=== PATIENT | male | born 2005 | race Caucasian/White ===

== ENCOUNTER 2024-03-16 12:03 | Inpatient (IN) | payer BC, SELFPAY ==
[2024-03-16] VITALS (9 sets, daily range): BP systolic 101–130; BP diastolic 51–80; PULSE 72–103; RESP 15–20; TEMP 36.7–38; O2SAT 86–100; BMI 19.9; BMI 21.5
--- NOTE | ~2024-03-16 | CT_ITS ---
EXAMINATION: CT CERVICAL SPINE WITHOUT CONTRAST CLINICAL INFORMATION: History injury, pain, right lower quadrant abdominal pain and syncope. COMPARISON: None available. TECHNIQUE: Spiral CT examination of the cervical spine was performed in axial plane and without IV contrast. Sagittal, coronal, and thin section axial reformatted images were constructed from the axial data set. This CT examination was performed using dose optimization techniques as appropriate, variously including the following: *Automated exposure control *Adjustment of mA and/or kV according to patient size (this includes techniques or standardized protocols for targeted exams where dose is matched to indication/reason for exam; i.e. extremities or head) *Use of iterative reconstruction technique DLP: 601 mGy-cm FINDINGS: Straightening of the normal lordosis. This is nonspecific. There is a trace right convex scoliosis which could be positional. There is no evidence of fracture or traumatic subluxation. There are no suspicious bone lesions or compression deformities. Facets are normally aligned. There are no subluxations. Disc spaces appear normal. No significant generative changes. No evidence of canal stenosis or large disc herniation. Atlantoaxial joint and craniocervical junction are intact and aligned. Normal thyroid. Lung apices are clear. CT/CT cervical spine wo IV con IMPRESSION: Unremarkable examination. No CT evidence of acute cervical spine fracture or injury. Electronically signed by: Samuel Mead MD 03/16/2024 02:27 PM [facility]
--- NOTE | ~2024-03-16 | CT_ITS ---
EXAMINATION: CT HEAD WITHOUT CONTRAST CLINICAL INFORMATION: Head strike and loss of consciousness COMPARISON: None available. TECHNIQUE: Contiguous axial imaging was performed from the skull base to vertex without intravenous administration of contrast. This CT examination was performed using dose optimization techniques as appropriate, variously including the following: *Automated exposure control *Adjustment of mA and/or kV according to patient size (this includes techniques or standardized protocols for targeted exams where dose is matched to indication/reason for exam; i.e. extremities or head) *Use of iterative reconstruction technique DLP: 650 mGy-cm FINDINGS: No intra or extra-axial fluid collection or hemorrhage, mass or mass effect. Calvarium is intact. CT/CT head/brain wo IV con IMPRESSION: No acute intracranial pathology. Electronically signed by: Cameron Odom MD 03/16/2024 12:39 PM [facility]
--- NOTE | ~2024-03-16 | CT_ITS ---
EXAMINATION: CT ABDOMEN AND PELVIS WITH CONTRAST CLINICAL INFORMATION: COMPARISON: None available. TECHNIQUE: Multidetector volumetric images were obtained from the superior aspect of the liver through the pubic symphysis following administration 85 mL of Omnipaque 350 intravenous contrast. Sagittal and coronal reformatted images were obtained on the technologist's workstation. Oral contrast: No This CT examination was performed using dose optimization techniques as appropriate, variously including the following: *Automated exposure control *Adjustment of mA and/or kV according to patient size (this includes techniques or standardized protocols for targeted exams where dose is matched to indication/reason for exam; i.e. extremities or head) *Use of iterative reconstruction technique DLP: mGy-cm FINDINGS: LUNG BASES: The visualized lung bases are unremarkable. LIVER, GALLBLADDER, AND BILIARY TREE: The liver is normal in size, shape, and attenuation. No focal hepatic lesion or biliary ductal dilatation is present. The gallbladder is unremarkable with no evidence of radiopaque gallstones, gallbladder wall thickening, or obvious pericholecystic inflammatory changes. PANCREAS: Unremarkable. SPLEEN: Unremarkable. ADRENAL GLANDS: Unremarkable. KIDNEYS AND URETERS: The kidneys are normal in size, shape, and attenuation. No hydronephrosis, hydroureter, or calculi seen. No perinephric stranding. BLADDER: Unremarkable. GASTROINTESTINAL TRACT: - The appendix appears engorged, measuring up to 9 mm in diameter, with mucosal enhancement, a proximal appendicolith, and periappendiceal inflammatory changes findings consistent with acute appendicitis. There is no evidence of abscess or complication. -The remainder of the GI tract is normal. PERITONEUM: -Trace ascites in the pelvis, presumably reactive. -No free air. ABDOMINAL WALL: No significant hernia is appreciated. LYMPH NODES: -No pathologic lymphadenopathy. -There is an increased number of lymph nodes in the central and right lower quadrant small bowel mesentery. VASCULAR: Unremarkable. PELVIC VISCERA: Unremarkable. OSSEOUS STRUCTURES: Unremarkable. CT/CT abdomen pelvis w IV con IMPRESSION: 1. Findings consistent with early acute appendicitis. No complications. 2. Mild lymphadenopathy in the central and right lower quadrant mesentery, likely reactive given the appendiceal process. Electronically signed by: Samuel Mead MD 03/16/2024 02:42 PM [facility] [place]
--- NOTE | 2024-03-16 12:06 | ED_ITS ---
HPI - Syncope General Chief Complaint: General Medical Stated Complaint: Eye lac, syncopal episode earlier Time Seen by Provider: 03/16/24 12:25 Source: patient and family (patient's father) Mode of arrival: ambulatory Limitations: no limitations History of Present Illness ED Provider: Lissett Rivera PA-C HPI narrative: Patient is a 18 year old assigned male at with a history of IBS and mono presenting to the emergency department today with right lower quadrant pain and a left sided facial laceration after a syncopal episode. Patient states that he woke up from sleep, stood up, and immediately went to the bathroom to urinate. Patient states that he started getting lightheaded, sat on the toilet so he didn't pass out, and then he fainted and hit his face. Patient states that last night he began having abdominal pain and today, it is worsening on the right lower side. Patient denies any dizziness, lightheadedness, nausea, vomiting, fever, chills, blurry vision, double vision, loss of vision, chest pain, difficulty breathing, shortness of breath, back pain, night sweats, pain with urination, increased urinary frequency, increased urinary urgency, blood in his urine or stool, bowel incontinence, bladder incontinence, or any other complaints at this time. Related Data Home Medications ?Medication ?Instructions ?Recorded ?Confirmed acetaminophen 500 mg tablet 500 mg PO QID PRN Pain 03/16/24 03/16/24 Allergies Allergy/AdvReac Type Severity Reaction Status Date / Time No Known Allergies Allergy Verified 03/16/24 12:09 Review of Systems 2 Constitutional: Constitutional: Reports no additional constitutional complaints, Denies chills, Denies fever(s) and Denies night sweats Eyes: Eyes: Reports no additional eye complaints, Denies blurry vision, Denies change in vision, Denies diplopia, Denies eye discharge, Denies loss of vision and Denies eye pain ENT: Denies dizziness Comments: left sided forehead laceration Cardiovascular: Cardiovascular: Reports no additional cardiovascular complaints, Denies chest pain, Denies lightheadedness, Denies Loss of Consciousness and Denies dyspnea Respiratory: Respiratory: Reports no additional respiratory complaints and Denies dyspnea Gastrointestinal: Gastrointestinal: Reports no additional gastrointestinal complaints, Denies abdominal pain, Denies melena, Denies hematochezia, Denies change in bowel habits and Denies change in stool character Genitourinary: Genitourinary: Reports no additional male genitourinary complaints, Denies hematuria, Denies oliguria, Denies difficulty urinating, Denies dysuria, Denies urinary frequency, Denies urinary hesitancy, Denies urinary incontinence and Denies urinary urgency Musculoskeletal: Musculoskeletal: Reports no additional musculoskeletal complaints, Denies numbness and Denies tingling Neurologic: Denies dizziness, Denies loss of vision, Denies numbness and Denies tingling Psychiatric: Psychiatric: Reports no additional psychiatric complaints Endocrine: Endocrine: Reports no additional endocrine complaints Hematologic/Lymphatic: Hematologic/Lymphatic: Reports no additional hematologic/lymphatic complaints Allergic/Immunologic: Allergic/Immunologic: Reports no additional allergic/immunologic complaints PMFSH Past Medical History Attestation statement: The following information was validated with the patient. (all information validated with the patient's father) Source: old records reviewed, obtained from family (patient's father provided additional history and confirmed the history provided by the patient.) and nursing notes reviewed Medical History Acute appendicitis Social History Social History Smoked in Last 30 Days: No Use of substances other than those prescribed or required for medical reasons: No Advance Directives: No Physical Exam 2 Vital Signs: Vital Signs: Last Vital Signs Temp 98.6 F 03/16/24 12:04 Pulse 93 03/16/24 12:04 Resp 18 03/16/24 12:04 BP 120/80 03/16/24 12:04 Pulse Ox 100 03/16/24 12:04 O2 Del Method Room Air 03/16/24 12:04 BMI result Body Mass Index 19.9 Const: General: cooperative, no acute distress, alert and awake Nutritional Appearance: well nourished Orientation/consciousness: patient oriented x3 Limitations: no limitations HEENT: Head: Yes normal to inspection Ears: hearing grossly normal bilaterally and external ears normal General nose exam: Normal external nose present, no nasal discharge noted and no epistaxis Face and sinus: No abrasion Face images: 1. 3.5cm laceration - no active bleeding Mouth: Normal oral and palatal mucosa present, no drooling and no muffled voice Eyes: General: appearance normal, both eyes and all related structures P eriorbital: periorbital findings normal Eyelids: Yes eyelids normal C onjunctivae: conjunctivae normal Pupils: Equal, round and reactive pupils present EOM: EOMs intact bilaterally Neck: Neck: Yes normal visual inspection, Yes full ROM and Yes no lymphadenopathy Chest: Chest palpation & inspection: normal inspection of the chest Resp: Effort & Inspection: normal respiratory effort and able to speak in complete sentences GI: Inspection: Yes normal to inspection Palpation (GI): Soft to palpation, not firm, Tenderness to palpation present (GI) in the RLQ, no guarding and not rigid Neuro: General: patient oriented x3 and moves all extremities Cranial nerves: Yes Equal, round and reactive pupils present Cognition (Neuro): n ormal cognition Extrem: General: Yes normal to inspection, Yes full ROM and Yes capillary refill normal Psych: Appearance: grossly normal Mental Status: mental status grossly normal Affect: normal affect Attitude: cooperative Thought process: N ormal thought process present Thought content: Normal thought content present Insight: Good insight present (Psych) Course Course Course Narrative: This is an RME: Additional HPI, ROS, PE not included below will be deferred to primary provider. RME assessment and note performed by: Eduarda Barrett PA-C This is a [id number], with no known medical problems, who presents to the ER with complaints of syncope. Pt states that while he was urinating and felt dizzy, sat down on the toilet and then fell down, and woke up on the floor. He lacerated his left eyebrow. Reports yesterday he had alot of abdominal pain, umbilical, now radiating to his RLQ. Reports that he has had syncopal episodes in the past when he is sick. Recently had mono 1 month ago. TTP in the RLQ. Plan: Labs, EKG Medications Administered Discontinued Medications Generic Name Dose Route Start Last Admin Trade Name Freq PRN Reason Stop Dose Admin Sodium Chloride 1,000 mls @ 999 mls/hr 03/16/24 12:45 03/16/24 14:05 Ns IV 03/16/24 13:45 Infused .Q1H1M NADJA Infusion Iohexol 85 ml 03/16/24 13:42 03/16/24 13:43 Iohexol 350 Mg/Ml 75 Ml Infus..Btl IV 03/16/24 13:43 85 ml ONCE ONE Administration Lidocaine HCl 5 ml 03/16/24 12:12 03/16/24 15:34 Lidocaine Hcl 1 % Mpf 5 Ml Vial SUBCUT 03/16/24 12:13 5 ml ONCE ONE Administration Medical Decision Making Medical Decision Making [facility] Narrative: Patient is a 18 year old assigned male at with a history of IBS and mono presenting to the emergency department today with right lower quadrant pain and a left sided facial laceration after a syncopal episode. Patient's physical exam was as noted in the physical exam portion of this note. Patient's blood work was unremarkable. Patient's EKG was unremarkable. Patient's head and c-spine CTs showed no acute process. Patient's CT of the abdomen/pelvis showed an early acute appendicitis. Patient was positive for mono however, that is positive given his recent known mono illness. I spoke to the general surgery team fire information officer who recommended admission to their service for planned OR this afternoon. Patient's clinical presentation is most consistent with an episode of syncope after orthostatic hypotension and appendicitis. Patient was given IV fluids while in the department. I explained my physical exam findings as well as all test results to the patient and the patient's father. I answered all questions asked by the patient and the patient's father. I repaired the patient's facial laceration, per procedure note, without incident. Patient and the patient's father verbalized agreement and understanding with this treatment plan and admission for appendectomy. Differential Diagnosis Differential Diagnoses: The differential diagnosis associated with the presentation includes Syncopal episode Vasovagal syncope Laceration Appendicitis Orthostatic hypotension Admission/Observation Consideration of admission/observation: Escalation of care including admission/observation considered Patient admitted as noted in the MDM Rationale portion of this note. Consult Healthcare Provider Management of the patient was discussed with: Director Of Marketing Operations (spoke to the general surgery team as noted in the MDM Rationale portion of this note.) Lab Data [facility] Lab Attestation statement: I reviewed the patient's lab results. My interpretation of these results are in the MDM Rationale portion of this note. 03/16/24 12:59 03/16/24 12:59 Labs: Lab Results 03/16/24 03/16/24 03/16/24 Range/Units 12:58 12:59 13:00 WBC 7.9 (4.8-10.8) X10*3/uL RBC 4.62 (4.60-5.80) X10*6/uL Hgb 14.5 (14.0-18.0) g/dl Hct 39.2 L (42.0-52.0) % MCV 84.8 (80.0-98.0) fL MCH 31.4 (27.0-33.0) pg MCHC 37.0 H (31.0-36.0) g/dl RDW 12.1 (11.0-16.0) % Plt Count 151 L (160-400) X10*3/uL MPV 9.2 L (9.4-12.4) fL Immature Gran % (Auto) 0.4 (0.0-0.4) % Neut % (Auto) 71.9 (45-73) % Lymph % (Auto) 17.7 L (20-40) % [place] % (Auto) 9.4 (2-11) % Eos % (Auto) 0.1 (0-4) % Baso % (Auto) 0.5 (0-2) % Lymph # (Auto) 1.4 (1.2-4.9) X10*3/uL [place] # (Auto) 0.7 (0.1-1.2) X10*3/uL Eos # (Auto) 0.0 (0.0-0.4) X10*3/uL Baso # (Auto) 0.0 (0.0-0.2) X10*3/uL Abs Immat Gran (auto) 0.03 (0.00-0.03) X10*3/uL Absolute Neuts (auto) 5.6 (2.0-8.3) x10*3/uL Absolute Nucleated RBC 0.000 (0.0-0.012) X10*3/uL Nucleated RBC % (auto) 0.0 (0.0-0.2) /100WBC PT 13.4 H (10.9-12.4) SEC INR 1.2 H (0.9-1.1) Sodium 139 (135-145) mmol/L Potassium 3.9 (3.3-5.1) mmol/L Chloride 104 (96-108) mmol/L Carbon Dioxide 29 (22-29) mmol/L Anion Gap 10 L (12-20) BUN 15 (9-16) mg/dL Creatinine 1.10 (0.5-1.4) mg/dL Estim Creat Clear Calc 101.7 Estimated GFR > 60 Random Glucose 89 (60-115) mg/dL Calcium 9.5 (8.4-10.2) mg/dL Magnesium 1.9 (1.6-2.6) mg/dL Total Bilirubin 0.8 (0.0-1.0) mg/dL Direct Bilirubin 0.4 (0.0-0.5) mg/dL AST 20 (5-37) U/L ALT 41 H (0-40) U/L Alkaline Phosphatase 77 (39-117) U/L Troponin I High Sens < 2.7 (<3.5-35.0) ng/L Total Protein 7.4 (6.5-8.0) g/dL Albumin 4.4 (3.5-5.0) g/dL Lipase 23 (8-78) U/L Urine Color Urine Appearance Urine pH (5.0-9.0) Ur Specific [place] (1.005-1.025) Urine Protein (Neg-Trace) mg/dL Urine Glucose (UA) (Negative) mg/dL Urine Ketones (Negative) mg/dL Urine Blood (Negative) Urine Nitrite (Negative) Ur Leukocyte Esterase (Negative) Monoscreen Positive A (Negative) Influenza Type A (PCR) NEGATIVE (Negative) Influenza Type B (PCR) NEGATIVE (Negative) RSV RNA Qual (PCR) NEGATIVE (Negative) SARS-CoV-2 RNA (RT-PCR) NEGATIVE (Negative) S. pyogenes GrpA LVI Negative (Negative) 03/16/24 Range/Units 13:55 WBC (4.8-10.8) X10*3/uL RBC (4.60-5.80) X10*6/uL Hgb (14.0-18.0) g/dl Hct (42.0-52.0) % MCV (80.0-98.0) fL MCH (27.0-33.0) pg MCHC (31.0-36.0) g/dl RDW (11.0-16.0) % Plt Count (160-400) X10*3/uL MPV (9.4-12.4) fL Immature Gran % (Auto) (0.0-0.4) % Neut % (Auto) (45-73) % Lymph % (Auto) (20-40) % [place] % (Auto) (2-11) % Eos % (Auto) (0-4) % Baso % (Auto) (0-2) % Lymph # (Auto) (1.2-4.9) X10*3/uL [place] # (Auto) (0.1-1.2) X10*3/uL Eos # (Auto) (0.0-0.4) X10*3/uL Baso # (Auto) (0.0-0.2) X10*3/uL Abs Immat Gran (auto) (0.00-0.03) X10*3/uL Absolute Neuts (auto) (2.0-8.3) x10*3/uL Absolute Nucleated RBC (0.0-0.012) X10*3/uL Nucleated RBC % (auto) (0.0-0.2) /100WBC PT (10.9-12.4) SEC INR (0.9-1.1) Sodium (135-145) mmol/L Potassium (3.3-5.1) mmol/L Chloride (96-108) mmol/L Carbon Dioxide (22-29) mmol/L Anion Gap (12-20) BUN (9-16) mg/dL Creatinine (0.5-1.4) mg/dL Estim Creat Clear Calc Estimated GFR Random Glucose (60-115) mg/dL Calcium (8.4-10.2) mg/dL Magnesium (1.6-2.6) mg/dL Total Bilirubin (0.0-1.0) mg/dL Direct Bilirubin (0.0-0.5) mg/dL AST (5-37) U/L ALT (0-40) U/L Alkaline Phosphatase (39-117) U/L Troponin I High Sens (<3.5-35.0) ng/L Total Protein (6.5-8.0) g/dL Albumin (3.5-5.0) g/dL Lipase (8-78) U/L Urine Color Yellow Urine Appearance Clear Urine pH 6.5 (5.0-9.0) Ur Specific [place] >= 1.030 H (1.005-1.025) Urine Protein Trace (Neg-Trace) mg/dL Urine Glucose (UA) Negative (Negative) mg/dL Urine Ketones Negative (Negative) mg/dL Urine Blood Negative (Negative) Urine Nitrite Negative (Negative) Ur Leukocyte Esterase Negative (Negative) Monoscreen (Negative) Influenza Type A (PCR) (Negative) Influenza Type B (PCR) (Negative) RSV RNA Qual (PCR) (Negative) SARS-CoV-2 RNA (RT-PCR) (Negative) S. pyogenes GrpA LIV (Negative) Independent Interpretation I performed an independent interpretation of an: EKG and CT Scan Interpretation: My interpretation is in agreement with the radiologist's impression of these imaging studies. L EXAMINATION: CT HEAD WITHOUT CONTRAST CLINICAL INFORMATION: Head strike and loss of consciousness COMPARISON: None available. TECHNIQUE: Contiguous axial imaging was performed from the skull base to vertex without intravenous administration of contrast. This CT examination was performed using dose optimization techniques as appropriate, variously including the following: *Automated exposure control *Adjustment of mA and/or kV according to patient size (this includes techniques or standardized protocols for targeted exams where dose is matched to indication/reason for exam; i.e. extremities or head) *Use of iterative reconstruction technique DLP: 650 mGy-cm FINDINGS: No intra or extra-axial fluid collection or hemorrhage, mass or mass effect. Calvarium is intact. CT/CT head/brain wo IV con IMPRESSION: No acute intracranial pathology. Electronically signed by: Cameron Odom MD 03/16/2024 12:39 PM [facility] Dictated By: Cameron Odom MD Signed By: Electronically signed by Cameron Odom MD 03/16/24 1239 EXAMINATION: CT ABDOMEN AND PELVIS WITH CONTRAST CLINICAL INFORMATION: COMPARISON: None available. TECHNIQUE: Multidetector volumetric images were obtained from the superior aspect of the liver through the pubic symphysis following administration 85 mL of Omnipaque 350 intravenous contrast. Sagittal and coronal reformatted images were obtained on the technologist's workstation. Oral contrast: No This CT examination was performed using dose optimization techniques as appropriate, variously including the following: *Automated exposure control *Adjustment of mA and/or kV according to patient size (this includes techniques or standardized protocols for targeted exams where dose is matched to indication/reason for exam; i.e. extremities or head) *Use of iterative reconstruction technique DLP: mGy-cm FINDINGS: LUNG BASES: The visualized lung bases are unremarkable. LIVER, GALLBLADDER, AND BILIARY TREE: The liver is normal in size, shape, and attenuation. No focal hepatic lesion or biliary ductal dilatation is present. The gallbladder is unremarkable with no evidence of radiopaque gallstones, gallbladder wall thickening, or obvious pericholecystic inflammatory changes. PANCREAS: Unremarkable. SPLEEN: Unremarkable. ADRENAL GLANDS: Unremarkable. KIDNEYS AND URETERS: The kidneys are normal in size, shape, and attenuation. No hydronephrosis, hydroureter, or calculi seen. No perinephric stranding. BLADDER: Unremarkable. GASTROINTESTINAL TRACT: - The appendix appears engorged, measuring up to 9 mm in diameter, with mucosal enhancement, a proximal appendicolith, and periappendiceal inflammatory changes findings consistent with acute appendicitis. There is no evidence of abscess or complication. - The remainder of the GI tract is normal. PERITONEUM: -Trace ascites in the pelvis, presumably reactive. -No free air. ABDOMINAL WALL: No significant hernia is appreciated. LYMPH NODES: -No pathologic lymphadenopathy. -There is an increased number of lymph nodes in the central and right lower quadrant small bowel mesentery. VASCULAR: Unremarkable. PELVIC VISCERA: Unremarkable. OSSEOUS STRUCTURES: Unremarkable. CT/CT abdomen pelvis w IV con IMPRESSION: 1. Findings consistent with early acute appendicitis. No complications. 2. Mild lymphadenopathy in the central and right lower quadrant mesentery, likely reactive given the appendiceal process. Electronically signed by: Samuel Mead MD 03/16/2024 02:42 PM [facility] [place] Dictated By: Samuel Mead MD Signed By: Electronically signed by Samuel Mead MD 03/16/24 1442 EXAMINATION: CT CERVICAL SPINE WITHOUT CONTRAST CLINICAL INFORMATION: History injury, pain, right lower quadrant abdominal pain and syncope. COMPARISON: None available. TECHNIQUE: Spiral CT examination of the cervical spine was performed in axial plane and without IV contrast. Sagittal, coronal, and thin section axial reformatted images were constructed from the axial data set. This CT examination was performed using dose optimization techniques as appropriate, variously including the following: *Automated exposure control *Adjustment of mA and/or kV according to patient size (this includes techniques or standardized protocols for targeted exams where dose is matched to indication/reason for exam; i.e. extremities or head) *Use of iterative reconstruction technique DLP: 601 mGy-cm FINDINGS: Straightening of the normal lordosis. This is nonspecific. There is a trace right convex scoliosis which could be positional. There is no evidence of fracture or traumatic subluxation. There are no suspicious bone lesions or compression deformities. Facets are normally aligned. There are no subluxations. Disc spaces appear normal. No significant generative changes. No evidence of canal stenosis or large disc herniation. Atlantoaxial joint and craniocervical junction are intact and aligned. Normal thyroid. Lung apices are clear. CT/CT cervical spine wo IV con IMPRESSION: Unremarkable examination. No CT evidence of acute cervical spine fracture or injury. Electronically signed by: Samuel Mead MD 03/16/2024 02:27 PM [facility] [place] Dictated By: Samuel Mead MD Signed By: Electronically signed by Samuel Mead MD 03/16/24 1427 Vent. Rate: 080 BPM Atrial Rate: 080 BPM P-R Int: 122 ms QRS Dur: 086 ms QT Int: 354 ms P-R-T Axes: 072 097 027 degrees QTc Int: 408 ms Normal sinus rhythm with sinus arrhythmia Rightward axis No previous ECGs available Referred By: Eduarda Barrett Electronically Signed By:Francisco Hinds Dictated By: Francisco Hinds MD Signed By: Electronically signed by Francisco Hinds MD 03/16/24 1423 Radiology Impression Discussion of test interpretation with radiology: I have reviewed the radiologist's reading. Independent Historian Clinical information obtained from an independent historian. History obtained from or confirmed by: Parent (patient's father provided additional history and confirmed the history provided by the patient.) Procedures Laceration Laceration 1: Site: face Side (If applicable): left Size (cm): 3.5 Description: irregular Depth: simple, single layer Local Anesthetic: lidocaine 1% Amount of anesthesia used (mL): 5 Pre-repair: wound explored, irrigated extensively and deep structures intact Skin layer closed with: other (prolene) Size (cm): 6-0 Number of sutures: 7 Technique: simple, interrupted Critical Care Time Critical Care Time Critical Care Time: Yes Total Critical Care Time: 49 Attestation: I spent 49 minutes of Critical Care Time with this patient. This does not include time spent on separately reported billable procedures. Discharge Plan Discharge Clinical Impression: Acute appendicitis, Laceration, Orthostatic hypotension, Syncope Patient Disposition: Admitted As Inpatient Print Language: Bolivian
--- NOTE | 2024-03-16 12:13 | ECG_ITS ---
Test Reason : syncope Blood Pressure : / mmHG Vent. Rate : 080 BPM Atrial Rate : 080 BPM P-R Int : 122 ms QRS Dur : 086 ms QT Int : 354 ms P-R-T Axes : 072 097 027 degrees QTc Int : 408 ms Normal sinus rhythm with sinus arrhythmia Rightward axis Borderline ECG No previous ECGs available Referred By: Eduarda Barrett Electronically Signed By:Francisco Hinds
[2024-03-16] MEDS: 0.9 % Sodium Chloride 1,000 ML 999 ML IV (13:02)
[2024-03-16 13:08] LABS: MANUAL DIFF FLAG NO
[2024-03-16 13:12] LABS: Basophils Percent Auto 0.5 % (0-2); Eosinophils Percent Auto 0.1 % (0-4); Hematocrit 39.2 % (42.0-52.0); Hemoglobin 14.5 g/dl (14.0-18.0); Imm Gran Abs Auto 0.03 X10*3/uL (0.00-0.03); Imm Gran Pct Auto 0.4 % (0.0-0.4); Lymphocytes Absolute Auto 1.4 X10*3/uL (1.2-4.9); Lymphocytes Percent Auto 17.7 % (20-40); Mean Corpuscular Hemoglobin 31.4 pg (27.0-33.0); Mean Corpuscular Volume 84.8 fL (80.0-98.0); Mean Platelet Volume 9.2 fL (9.4-12.4); Monocytes Absolute Auto 0.7 X10*3/uL (0.1-1.2); Monocytes Percent Auto 9.4 % (2-11); Neutrophils Absolute Auto 5.6 x10*3/uL (2.0-8.3); Neutrophils Percent Auto 71.9 % (45-73); Platelet Count 151 X10*3/uL (160-400); Red Blood Count 4.62 X10*6/uL (4.60-5.80); Red Cell Distribution Width 12.1 % (11.0-16.0); White Blood Count 7.9 X10*3/uL (4.8-10.8)
[2024-03-16 13:15] LABS: INTERNATIONAL NORM RATIO 1.2 (0.9-1.1); Prothrombin Time 13.4 SEC (10.9-12.4)
[2024-03-16 13:17] LABS: IDNOW Serial# 58CA691E; Strep A Nucleic Acid Negative (Negative)
[2024-03-16 13:29] LABS: Monotest Positive (Negative)
[2024-03-16 13:30] LABS: Alanine Aminotransferase 41 U/L (0-40); Albumin Level 4.4 g/dL (3.5-5.0); Alkaline Phosphatase 77 U/L (39-117); Anion Gap 10 (12-20); Aspartate Amino Transferase 20 U/L (5-37); Bilirubin Direct 0.4 mg/dL (0.0-0.5); Bilirubin Total 0.8 mg/dL (0.0-1.0); Blood Urea Nitrogen 15 mg/dL (9-16); Calcium 9.5 mg/dL (8.4-10.2); Carbon Dioxide 29 mmol/L (22-29); Chloride 104 mmol/L (96-108); Creatinine Clr Calc Pharmacy 101.7; Estimated Glomerular Filt Rate > 60; Glucose Random 89 mg/dL (60-115); Lipase 23 U/L (8-78); Magnesium 1.9 mg/dL (1.6-2.6); Potassium 3.9 mmol/L (3.3-5.1); Sodium 139 mmol/L (135-145); Total Protein 7.4 g/dL (6.5-8.0)
[2024-03-16] MEDS: iohexoL 350 MG/ML 75 ML INFUS..BTL 85 ML IV (13:43)
[2024-03-16 13:47] LABS: Influenza A PCR NEGATIVE (Negative); Influenza B PCR NEGATIVE (Negative); Resp Syncy Virus RNA Qual PCR NEGATIVE (Negative); SARS COV2 PCR INHOUSE NEGATIVE (Negative)
[2024-03-16 14:01] LABS: Appearance Urine Clear; Color Urine Yellow; Glucose Urine UA Negative (Negative); Leukocyte Esterase Urine Negative (Negative); Nitrite Urine Negative (Negative); PH 6.5 (5.0-9.0); Specific Gravity - Urine >= 1.030 (1.005-1.025); Urine Blood Negative (Negative); Urine Ketones Negative (Negative); Urine Protein Trace mg/dL (Neg-Trace)
[2024-03-16 14:53] LABS: Troponin-I High Sensitivity < 2.7 ng/L (<3.5-35.0)
--- NOTE | 2024-03-16 15:33 | PM.HPGS ---
History of Present Illness History of Present Illness Date of Service: 03/16/24 Chief complaint: acute appendicitis Narrative: Shawn Ramos is a 18 year old male here in the ER initially because of a syncopal episode with a laceration on the left eyebrow area. He has says that this happened early this morning However, he also mentioned that he has been having pain in the right lower quadrant since last night. He denies any nausea or vomiting. He says he continues to have pain specifically on the right side of his abdomen He denies any fever or chills. He had a CAT scan of the abdomen done showing early appendicitis with an appendicolith. He says that he has had some syncopal episode in the past for abdominal pain. Review of Systems Constitutional: Constitutional: Denies chills and Denies fever(s) Cardiovascular: Cardiovascular: Denies chest pain, Denies dyspnea and Denies dyspnea on exertion Respiratory: Respiratory: Denies cough, Denies dyspnea and Denies dyspnea on exertion Gastrointestinal: Gastrointestinal: Denies hematochezia and Denies change in bowel habits Genitourinary: Genitourinary: Denies hematuria and Denies difficulty urinating Musculoskeletal: Musculoskeletal: Denies back pain and Denies limited range of motion Neurologic: Denies focal weakness and Denies convulsions Psychiatric: Psychiatric: Denies depression and Denies mood swings Comments: Syncope PMFSH Past Medical History Medical History Acute appendicitis Social History Social History Patient Tobacco Use Status: Never used Tobacco Smoked in Last 30 Days: No Use of substances other than those prescribed or required for medical reasons: No Are you DNR?: No Advance Directives: No Meds Allergies Allergy/AdvReac Type Severity Reaction Status Date / Time No Known Allergies Allergy Verified 03/16/24 12:09 Home Medications ?Medication ?Instructions ?Recorded ?Confirmed ?Last Taken ?Type acetaminophen 500 mg tablet 500 mg PO QID PRN Pain 03/16/24 03/16/24 03/16/24 History Physical Exam Vital Signs: Vital Signs: Last Vital Signs Temp 98.6 F 03/16/24 12:04 Pulse 93 03/16/24 12:04 Resp 18 03/16/24 12:04 BP 120/80 03/16/24 12:04 Pulse Ox 100 03/16/24 12:04 O2 Del Method Room Air 03/16/24 12:04 BMI result Body Mass Index 19.9 Const: General: comfortable and no acute distress Orientation/consciousness: patient oriented x3 Eyes: Other: Laceration of the left eyebrow, about 2 cm Neck: Neck: Yes no lymphadenopathy Resp: Auscultation: clear to auscultation bilaterally Cardio: Rhythm: regular rhythm GI: Palpation (GI): Soft to palpation, Tenderness to palpation present (GI) (Tender on the right lower quadrant), no guarding and not rigid Neuro: General: patient oriented x3 Results Results Labs: Short CBC 03/16/24 Range/Units 12:59 WBC 7.9 (4.8-10.8) X10*3/uL Hgb 14.5 (14.0-18.0) g/dl Hct 39.2 L (42.0-52.0) % Plt Count 151 L (160-400) X10*3/uL BMP 03/16/24 12:59 Sodium 139 Potassium 3.9 Chloride 104 Carbon Dioxide 29 BUN 15 Creatinine 1.10 Calcium 9.5 Liver Function 03/16/24 Range/Units 12:59 Total Bilirubin 0.8 (0.0-1.0) mg/dL Direct Bilirubin 0.4 (0.0-0.5) mg/dL AST 20 (5-37) U/L ALT 41 H (0-40) U/L Alkaline Phosphatase 77 (39-117) U/L Albumin 4.4 (3.5-5.0) g/dL Urine 03/16/24 Range/Units 13:55 Urine Color Yellow Urine Appearance Clear Urine pH 6.5 (5.0-9.0) Ur Specific [place] >= 1.030 H (1.005-1.025) Urine Protein Trace (Neg-Trace) mg/dL Urine Glucose (UA) Negative (Negative) mg/dL Abdomen CT scan report/results: report reviewed and image reviewed CT scan - pelvis: report reviewed and image reviewed Assessment and Plan (1) Acute appendicitis: Status: Acute 18-year-old male with right lower quadrant pain. I have reviewed his CAT scan images. He does have some mild inflammatory changes in the appendix along with what appears to be an appendicolith. He still has tenderness in the area. I therefore explained to him the option of proceeding with laparoscopic appendectomy and possible open appendectomy. I reviewed with him the technique of this procedure. I explained the risks including but not limited to bleeding, infections, staple line leak, bowel injury, injury to other organs, as well as the benefits and alternatives. He says he wants to proceed . We will do this procedure as soon as the OR is available. This was discussed as well with his father Leonel at [phone]. He had a syncopal episode but he does not have any neurologic deficits at this time. He has had CT and C-spine CT are unremarkable. His eyebrow laceration is being sutured currently by the ER staff. Quality Stroke Does the patient have a stroke diagnosis?: No VTE Prior VTE?: No VTE Risk Level:: Medical - low VTE Device Contraindication: N/A - Device Ordered VTE Drug Contraindication: Treatment Not Indicated Procedures Date of Service Date of Service: 03/16/24
[2024-03-16] MEDS: Lidocaine HCl 1 % MPF 5 ML VIAL SUBCUT (15:34)
--- NOTE | 2024-03-16 15:58 | PHA.MEDREC ---
Addendum entered by Srinivasa Rodriguez RPh 03/16/24 15:58: med rec reviewed Original Note: Pharmacy Consult ? Medication Reconciliation Pharmacy has completed the medication reconciliation.
--- NOTE | 2024-03-16 17:07 | P.CONAN_ITS ---
REPLACED BY [facility] Active Problems Active Problems: All Active Problems Syncope (Acute) Orthostatic hypotension (Acute) Laceration (Acute) Acute appendicitis (Acute) Past Medical History Medical History Acute appendicitis Family History Family history of problems with anesthesia: No Surgical History History of Problems with Anesthesia: No Social History Social History Patient Tobacco Use Status: Never used Tobacco Smoked in Last 30 Days: No Use of substances other than those prescribed or required for medical reasons: No Are you DNR?: No Advance Directives: No Meds Allergies Allergy/AdvReac Type Severity Reaction Status Date / Time No Known Allergies Allergy Verified 03/16/24 12:09 Active Medications: Current Medications Acetaminophen (Acetaminophen 325 Mg Tablet) 650 mg PO Q6H PRN PRN Reason: Pain, Mild 1-3,fever,headache Calcium Carbonate (Calcium Carbonate 750 Mg Tab.Chew) 750 mg PO Q4H PRN PRN Reason: Heartburn Sodium Chloride (Ns) 1,000 mls @ 999 mls/hr IV .Q1H1M [facility] Stop: 03/16/24 17:15 Magnesium Hydroxide (Milk Of Magnesia 30 Ml Oral.Susp) 30 ml PO DAILY PRN PRN Reason: Constipation Melatonin (Melatonin 3 Mg Tablet) 6 mg PO BEDTIME PRN PRN Reason: Insomnia Sodium Chloride (0.9 % Sodium Chloride Flush 3 Ml Syringe) 3 ml IVFLUSH QSHI Home Medications ?Medication ?Instructions ?Recorded ?Confirmed ?Last Taken ?Type acetaminophen 500 mg tablet 500 mg PO QID PRN Pain 03/16/24 03/16/24 03/16/24 History Exam Height,Weight and Vital Signs: Height 5 ft 10 in Weight 68.039 kg Last Vital Signs Temp 100.4 F 03/16/24 16:30 Pulse 84 03/16/24 16:30 Resp 18 03/16/24 16:30 BP 116/78 03/16/24 16:30 Pulse Ox 98 03/16/24 16:30 O2 Del Method Room Air 03/16/24 16:30 Pertinent Lab Results Pertinent Lab Results: Laboratory Tests 03/16/24 03/16/24 03/16/24 12:58 12:59 13:00 WBC 7.9 RBC 4.62 Hgb 14.5 Hct 39.2 L MCV 84.8 MCH 31.4 MCHC 37.0 H RDW 12.1 Plt Count 151 L MPV 9.2 L Immature Gran % (Auto) 0.4 Neut % (Auto) 71.9 Lymph % (Auto) 17.7 L [place] % (Auto) 9.4 Eos % (Auto) 0.1 Baso % (Auto) 0.5 Lymph # (Auto) 1.4 [place] # (Auto) 0.7 Eos # (Auto) 0.0 Baso # (Auto) 0.0 Abs Immat Gran (auto) 0.03 Absolute Neuts (auto) 5.6 Absolute Nucleated RBC 0.000 Nucleated RBC % (auto) 0.0 PT 13.4 H INR 1.2 H Sodium 139 Potassium 3.9 Chloride 104 Carbon Dioxide 29 Anion Gap 10 L BUN 15 Creatinine 1.10 Estim Creat Clear Calc 101.7 Estimated GFR > 60 Random Glucose 89 Calcium 9.5 Magnesium 1.9 Total Bilirubin 0.8 Direct Bilirubin 0.4 AST 20 ALT 41 H Alkaline Phosphatase 77 Troponin I High Sens < 2.7 Total Protein 7.4 Albumin 4.4 Lipase 23 Urine Color Urine Appearance Urine pH Ur Specific [place] Urine Protein Urine Glucose (UA) Urine Ketones Urine Blood Urine Nitrite Ur Leukocyte Esterase Monoscreen Positive A Influenza Type A (PCR) NEGATIVE Influenza Type B (PCR) NEGATIVE RSV RNA Qual (PCR) NEGATIVE SARS-CoV-2 RNA (RT-PCR) NEGATIVE S. pyogenes GrpA LIV Negative 03/16/24 13:55 WBC RBC Hgb Hct MCV MCH MCHC RDW Plt Count MPV Immature Gran % (Auto) Neut % (Auto) Lymph % (Auto) [place] % (Auto) Eos % (Auto) Baso % (Auto) Lymph # (Auto) [place] # (Auto) Eos # (Auto) Baso # (Auto) Abs Immat Gran (auto) Absolute Neuts (auto) Absolute Nucleated RBC Nucleated RBC % (auto) PT INR Sodium Potassium Chloride Carbon Dioxide Anion Gap BUN Creatinine Estim Creat Clear Calc Estimated GFR Random Glucose Calcium Magnesium Total Bilirubin Direct Bilirubin AST ALT Alkaline Phosphatase Troponin I High Sens Total Protein Albumin Lipase Urine Color Yellow Urine Appearance Clear Urine pH 6.5 Ur Specific [place] >= 1.030 H Urine Protein Trace Urine Glucose (UA) Negative Urine Ketones Negative Urine Blood Negative Urine Nitrite Negative Ur Leukocyte Esterase Negative Monoscreen Influenza Type A (PCR) Influenza Type B (PCR) RSV RNA Qual (PCR) SARS-CoV-2 RNA (RT-PCR) S. pyogenes GrpA LIV Airway Mallampati Class: II TM Dist: >3cm Neck ROM: Full Assessment and Plan Assessment Anesthesia Assessment: Anesthesia Plan Discussed and Chart Reviewed Final Anesthetic Review Family History of Problems with Anesthesia: No History of Problems with Anesthesia: No NPO: Yes ASA Class: I and Emergency Final Preanesthetic Review: No Changes in Pt Med Stat, Meds/Allgs Chart Reviewed, Consent Obtained/Reviewed and Anes Risks/Benef Reviewed Patient Risk: Low Procedure Risk: Low Anesthetic Plan Anesthetic Plan: GA Disposition: Standard PACU
--- NOTE | 2024-03-16 18:46 | P.OP_ITS ---
Operative Note Operative Note Date of Service: 03/16/24 Narrative: Preop diagnosis: Acute appendicitis Postop diagnosis : Acute appendicitis, very erythematous and indurated appendix at the distal 2/3 Procedure: Laparoscopic appendectomy Surgeon: Pradeep Jaramillo MD The patient is a 18-year-old male with right lower quadrant pain since last night with a CAT scan showing acute appendicitis. He had understood the technique of the planned procedure as well as the risks, benefits, and alternatives. He was brought to the operating room. He was placed supine under general anesthesia via endotracheal tube. A Esquivel catheter was inserted. He received Cefotan 2 g IV preoperatively. The abdomen was prepped and draped in the usual sterile fashion. A surgical time-out was done A short infraumbilical incision was made on the skin using blade 15. This was carried down bluntly through the full-thickness of the skin subcutaneous fat. The fascia was incised. The peritoneum was entered. Through this incision a Donahue port was introduced. Pneumoperitoneum was introduced to a pressure of 15 mm Hg. From here on the rest of the procedure was done under vision with the 10 mm 30 degree laparoscope. With laparoscopic visualization I inserted a 5/12 mm port in the left lower quadrant through a small stab incision. A 5 mm port was introduced a small incision in the suprapubic margin through a small stab incision. The patient was placed in a steep head-down and [id number] position. Graspers were applied. We reflected the bowel loops away from the right lower quadrant and we were able to see a very erythematous, indurated appendix. There was a little adherent to the right gutter. We had to gently separate this with blunt dissection until we are able to bring the entire length of the appendix out with full visualization. I applied a grasper gently at the tip of the appendix to put this on stretch. This expose the base of the appendix. The distal 2/3 of the appendix was indurated and inflamed and very erythematous. The base of the appendix was noninflamed. I used the [place] dissector to create a mesenteric window. I positioned the Endo-MARY CARMEN 30 mm stapler across the base and this was fired to transect the appendix. I used the LigaSure to divide the attached mesoappendix serially. The appendix was then completely and was retrieved through an endobag through the left lower quadrant incision. I reinserted all ports and re-insufflated. I examined the area of dissection. There was note of some steady oozing from 1 area of the staple line. I applied a small clip across this and this achieved hemostasis. Once hemostasis was confirmed, I examined all 4 quadrants carefully. There was no other pathology. There was no evidence of any bowel injury. I pulled the omentum which was very thin down to cover the area of the dissection Once hemostasis was confirmed, I then desufflated through the port sites. I removed all ports under vision with the laparoscope. The umbilical port was removed last The fascia of the umbilical incision was closed with a buccho-bl-adyke Polysorb 0 stitch Skin closure was achieved on all incisions using Polysorb 4-0 subcuticular running sutures. All incisions were infiltrated with a Marcaine 0.5% for postop analgesia Steri-Strips and dressings were applied. The procedure was then completed The patient tolerated procedure well. There were no immediate complications. I nitial and final counts of sponges and instruments were correct. Estimated blood loss was about 40 cc The patient was extubated without difficulty and transferred to the recovery room with stable vital signs.
--- NOTE | 2024-03-16 19:14 | PM.EVENT ---
Event Note Date of Service: 03/18/24 Event Note: seen postop s/p lap appy looks comfortable adequate pain control stable VS diet as tolerated pain mgt family updted by phone poss. home tomorrow Time Spent With Patient Time: Total time managing care of this patient today ____ minutes.
[2024-03-16] MEDS: oxyCODONE HCl Immed Release 5 MG TABLET PO (19:26)
[2024-03-16] MEDS: Lactated Ringers 1,000 ML 100 ML IVCONT (19:27)
[2024-03-16] MEDS: ondansetron HCL 4 MG/2 ML VIAL IVPUSH (20:10)
[2024-03-16] MEDS: Acetaminophen 325 MG TABLET 650 MG PO (23:05)
[2024-03-17 03:52] VITALS: BP 111/62; PULSE 86; RESP 20; TEMP 36.6; O2SAT 93
[2024-03-17] MEDS: Lactated Ringers 1,000 ML 100 ML IVCONT (04:39)
[2024-03-17 07:21] VITALS: BP 112/54; PULSE 87; RESP 14; TEMP 36.6; O2SAT 99
[2024-03-17] MEDS: Acetaminophen 325 MG TABLET 650 MG PO (07:45)
--- NOTE | 2024-03-17 09:12 | MHC.CM.PN ---
CM MET WITH PT AT BEDSIDE. PT LIVES WITH FAMILY, R/T COLLEGE STUDENT. PT IS FUNCTIONALLY INDEPENDENT. DECLINES COMPLETING A HCP BUT ACCEPTS BLANK COPY TO TAKE HOME. PCP [facility] DP: HOME, NO SERVICES ANTICIPATED. PT'S FAMILY WILL TRANSPORT. CM WILL CONTINUE TO FOLLOW FOR ANY CHANGE TO DC PLAN/NEEDS.
--- NOTE | 2024-03-17 12:44 | MHC.CM.PN ---
DP: PT HAS BEEN MEDICALLY CLEARED FOR DC HOME, NO SERVICES. FAMILY WILL TRANSPORT.
--- NOTE | 2024-03-17 12:58 | PM.PNGS ---
Subjective Subjective Date of Service: 03/17/24 Interval history: Patient was evaluated with parents present. He is doing well. Starting a diet. He is up ambulating. He is having appropriate incisional discomfort and otherwise doing well. Wishes to be discharged home. Physical Exam Vital Signs: Vital Signs: Last Vital Signs Temp 97.9 F 03/17/24 07:21 Pulse 87 03/17/24 07:21 Resp 14 03/17/24 07:21 BP 112/54 L 03/17/24 07:21 Pulse Ox 99 03/17/24 07:21 O2 Del Method Room Air 03/17/24 07:21 O2 Flow Rate 6 03/16/24 18:35 BMI result Body Mass Index 21.5 GI: Other: Abdomen is soft. All wounds clean dry and intact dressings. Objective Data Active Medications Acetaminophen (Acetaminophen 325 Mg Tablet) 650 mg PO Q6H PRN PRN Reason: Pain, Mild 1-3,fever,headache Last Admin: 03/17/24 07:45 Dose: 650 mg Documented By: UZMA Calcium Carbonate (Calcium Carbonate 750 Mg Tab.Chew) 750 mg PO Q4H PRN PRN Reason: Heartburn Lactated Ringer's (Lr) 1,000 mls @ 100 mls/hr IVCONT .Q10H NADJA Last Admin: 03/17/24 04:39 Dose: 100 mls/hr Documented By: LUISANA Magnesium Hydroxide (Milk Of Magnesia 30 Ml Oral.Susp) 30 ml PO DAILY PRN PRN Reason: Constipation Melatonin (Melatonin 3 Mg Tablet) 6 mg PO BEDTIME PRN PRN Reason: Insomnia Morphine Sulfate (Morphine Sulfate 4 Mg/Ml Cartridge) 3 mg IVPUSH Q4H PRN; Protocol PRN Reason: Pain, Severe (Pain Scale 7-10) Naloxone HCl (Naloxone Hcl 0.4 Mg/Ml Vial) 0.04 mg IVPUSH Q5M PRN PRN Reason: Excessive sedation or RR < 8 Ondansetron HCl (Ondansetron Hcl 4 Mg/2 Ml Vial) 4 mg IVPUSH Q6H PRN PRN Reason: nausea Last Admin: 03/16/24 20:10 Dose: 4 mg Documented By: LUISANA Oxycodone HCl (Oxycodone Hcl Immed Release 5 Mg Tablet) 5 mg PO Q4H PRN PRN Reason: Pain, Moderate(Pain Scale 4-6) Last Admin: 03/16/24 19:26 Dose: 5 mg Documented By: LUISANA Sodium Chloride (0.9 % Sodium Chloride Flush 3 Ml Syringe) 3 ml IVFLUSH QSHIFT [facility] Last Admin: 03/17/24 07:54 Dose: Not Given Documented By: UZMA Non-Admin Reason: IV Running Labs 03/16/24 12:59 03/16/24 12:59 Labs: Laboratory Results - last 24 hr 03/16/24 03/16/24 03/16/24 12:58 12:59 13:00 MCV 84.8 MCH 31.4 MCHC 37.0 H RDW 12.1 Plt Count 151 L MPV 9.2 L Immature Gran % (Auto) 0.4 Neut % (Auto) 71.9 Lymph % (Auto) 17.7 L [place] % (Auto) 9.4 Eos % (Auto) 0.1 Baso % (Auto) 0.5 Lymph # (Auto) 1.4 [place] # (Auto) 0.7 Eos # (Auto) 0.0 Baso # (Auto) 0.0 Abs Immat Gran (auto) 0.03 Absolute Neuts (auto) 5.6 Absolute Nucleated RBC 0.000 Nucleated RBC % (auto) 0.0 PT 13.4 H INR 1.2 H Anion Gap 10 L Estim Creat Clear Calc 101.7 Estimated GFR > 60 Random Glucose 89 Calcium 9.5 Magnesium 1.9 Total Bilirubin 0.8 Direct Bilirubin 0.4 AST 20 ALT 41 H Alkaline Phosphatase 77 Troponin I High Sens < 2.7 Total Protein 7.4 Albumin 4.4 Lipase 23 Urine Color Urine Appearance Urine pH Ur Specific [place] Urine Protein Urine Glucose (UA) Urine Ketones Urine Blood Urine Nitrite Ur Leukocyte Esterase Monoscreen Positive A Influenza Type A (PCR) NEGATIVE Influenza Type B (PCR) NEGATIVE RSV RNA Qual (PCR) NEGATIVE SARS-CoV-2 RNA (RT-PCR) NEGATIVE S. pyogenes GrpA LIV Negative 03/16/24 13:55 MCV MCH MCHC RDW Plt Count MPV Immature Gran % (Auto) Neut % (Auto) Lymph % (Auto) [place] % (Auto) Eos % (Auto) Baso % (Auto) Lymph # (Auto) [place] # (Auto) Eos # (Auto) Baso # (Auto) Abs Immat Gran (auto) Absolute Neuts (auto) Absolute Nucleated RBC Nucleated RBC % (auto) PT INR Anion Gap Estim Creat Clear Calc Estimated GFR Random Glucose Calcium Magnesium Total Bilirubin Direct Bilirubin AST ALT Alkaline Phosphatase Troponin I High Sens Total Protein Albumin Lipase Urine Color Yellow Urine Appearance Clear Urine pH 6.5 Ur Specific [place] >= 1.030 H Urine Protein Trace Urine Glucose (UA) Negative Urine Ketones Negative Urine Blood Negative Urine Nitrite Negative Ur Leukocyte Esterase Negative Monoscreen Influenza Type A (PCR) Influenza Type B (PCR) RSV RNA Qual (PCR) SARS-CoV-2 RNA (RT-PCR) S. pyogenes GrpA LIV Procedures Date of Service Date of Service: 03/17/24 Progress Note: A&P Assessment and plan (1) Status post laparoscopic appendectomy: Status: Acute Plan Patient will be discharged home. Discharge instructions reviewed. Patient will follow up in office. All questions answered. Time Spent With Patient Time: Total time managing care of this patient today ____ minutes. Quality Stroke Does the patient have a stroke diagnosis?: No VTE Prior VTE?: No VTE Risk Level:: Medical - low VTE Device Contraindication: N/A - Device Ordered VTE Drug Contraindication: Treatment Not Indicated
--- NOTE | 2024-03-17 13:25 | PM.DS ---
DS: Providers Provider Date of Service: 03/17/24 Date of admission: 03/16/24 15:32 Date of discharge: 03/17/24 Primary care physician: Srinivasa Ordoñez MD Attending physician on admission: Pradeep Jaramillo Attending physician on discharge: Angel Luis Kraus DS: Diagnosis Discharge Diagnosis (1) Status post laparoscopic appendectomy: Status: Acute DS: Summary Hospital Course Hospital Course: HPI AT ADMISSION: Shawn Ramos is a 18 year old male here in the ER initially because of a syncopal episode with a laceration on the left eyebrow area. He has says that this happened early this morning. However, he also mentioned that he has been having pain in the right lower quadrant since last night. He denies any nausea or vomiting. He says he continues to have pain specifically on the right side of his abdomen. He denies any fever or chills. He had a CAT scan of the abdomen done showing early appendicitis with an appendicolith. He says that he has had some syncopal episode in the past for abdominal pain. HOSPITAL COURSE: The patient was admitted to the surgical service for further treatment of the acute appendicitis. He elected to proceed with laparoscopic appendectomy. He was added onto the OR schedule for that day. On 03/16/24, a laparoscopic appendectomy was performed by Dr. Jaramillo without complication. The patient tolerated the procedure well. He had an uncomplicated recovery course. On POD #1, he felt well and was tolerating a solid diet without nausea or vomiting, had good pain control and was ambulating without difficulty. He was hemodynamically stable. His abdomen was benign with appropriate post op tenderness and clean and intact dressings. He felt ready for discharge. He was discharged to home on 03/17/24 in stable condition. He is to follow up in the office in 2 weeks. Status at Discharge Functional status at discharge: independent ambulation Overall status at discharge: patient is progressing back to baseline Time Attestation Discharge Coordination Time (in mins): 30 Quality: Safe Use of Opioids Does Pt have an Active Cancer Diagnosis on the Problem List?: No Quality: Stroke Does the patient have a stroke diagnosis?: No Physical Exam Vital Signs: Vital Signs: Last Vital Signs Temp 97.9 F 03/17/24 07:21 Pulse 87 03/17/24 07:21 Resp 14 03/17/24 07:21 BP 112/54 L 03/17/24 07:21 Pulse Ox 99 03/17/24 07:21 O2 Del Method Room Air 03/17/24 07:21 O2 Flow Rate 6 03/16/24 18:35 BMI result Body Mass Index 21.5 Const: General: comfortable, no acute distress and alert Orientation/consciousness: patient oriented x3 GI: Inspection: Yes incision (dressings clean and intact) Palpation (GI): Soft to palpation and no guarding Neuro: General: patient oriented x3 DS: Data Data Completed and Pending Completed studies during hospitalization [Text1]: 03/16/24 17:57 Surgical [PTH] Routine Appendix, appendectomy: Acute appendicitis Discharge Plan Discharge Anticipated Discharge Date/Time: 03/17/24 12:12 Patient Disposition: Home, Self-Care Discharge Diagnosis: acute appendicitis Referrals: Srinivasa Ordoñez MD [Primary Care Provider] - 1 Week Pradeep Jaramillo MD [Physician] - 2 Weeks Discharge Medications: New ibuprofen 600 mg tablet 600 mg PO Q6H PRN (Reason: pain) Qty: 25 0RF oxycodone 5 mg tablet 5 mg PO Q6H PRN (Reason: pain) Qty: 20 0RF Rx Instructions: Partial Fill upon patient request. Continued acetaminophen 500 mg Tablet 500 mg PO QID PRN (Reason: Pain) Discharge Orders: Discharge Order (Routine); Ordered 03/17/24 Ordered By: Angel Luis Kraus Diet: Advance to usual diet Activity on Discharge: No heavy lifting Stand Alone Forms: Patient Portal Discharge page Print Language: Romansh Activity Restrictions/Additional Instructions: If the incision area is tender, you may apply an ice pack for short intervals (No more than 20 minutes on, followed by at least 20 minutes off). Do not apply heat. Do not use creams, lotions, or topical antibiotics unless instructed to do so by your surgeon. These can cause infection or allergic reaction. ok to change dressings on left eyebrow with Bandaid No lifting more than 20 lbs Okay to shower starting Mar 18 Okay to change dressings with gauze or Band-Aid starting Mar 18 No strenuous activities Call the office for follow-up in 2 weeks - with Dr. Jaramillo Call Your Doctor If: -Your temperature exceeds 101.5? F -You experience excessive pain or swelling -You have an unexpected reaction to medication -You have excessive bleeding -You experience continued vomiting/nausea -Your incision begins to separate -Your incision shows signs of infection such as increased redness, swelling, excessive pain, drainage (light blood or clear fluid is normal) or heat Care Plan Goals: return to baseline health Health Concerns: postop pain Plan of Treatment: oral pain meds Assessment: doing well Patient Instructions: Laparoscopic Appendectomy (DC) Discharge Date/Time: 03/17/24 13:16
--- NOTE | 2024-03-18 11:39 | HO.POSTANES ---
Post Anesthesia Evaluation Post Anesthesia Evaluation Date of Service: 03/18/24 Anesthesia: General Endotracheal-GETA Mental Status: Awake Pain Control: Satisfactory Nausea/Vomiting: None Hydration: Adequate Anesthesia-Related Issues: No Anes. Related Issues
== END 2024-03-17 13:16 | disposition home or self-care (01) | DRG 234 ==
LOC: HO.ED 16:10 → HO.EDOVER 16:11 → HO.S3 16:47
PROVIDERS: Physician Assistant Medical; Admitting Provider Surgery; Emergency Provider Student in an Organized Health Care Education/Training Program; PCP Pediatrics; Visit Provider Surgery
PROC: 0DTJ4ZZ Resection of Appendix, Percutaneous Endoscopic Approach (ICD-10-PCS; CPT 44970; principal; 2024-03-16 16:30)
DX: K35.80 Unspecified acute appendicitis (principal); S01.112A Laceration without foreign body of left eyelid and periocular area, initial encounter; Z20.822 Contact with and (suspected) exposure to COVID-19; W19.XXXA Unspecified fall, initial encounter
CPT/HCPCS: 0241U; 36415; 70450; 72125; 74177; 80048; 80076; 81003; 83690; 83735; 84484; 85025; 85610; 86308; 87651; 88304; 93005; 99285; J1100; J2003; J2250; J2405; J2704; J2795; J3010; J7120; Q9967

== ENCOUNTER → 2024-03-16 12:13 | Outpatient (BNV) | payer BC, SELFPAY | PROVIDERS: Emergency Provider Student in an Organized Health Care Education/Training Program; PCP Pediatrics; Visit Provider Internal Medicine Cardiovascular Disease | DX: R55 Syncope and collapse (principal) | CPT/HCPCS: 93010 ==

== ENCOUNTER → 2024-03-16 12:26 | Outpatient (BNV) | payer BC, SELFPAY | PROVIDERS: Emergency Provider Student in an Organized Health Care Education/Training Program; PCP Pediatrics; Visit Provider Radiology Diagnostic Radiology | DX: K35.891 Other acute appendicitis without perforation, with gangrene (principal); R10.9 Unspecified abdominal pain | CPT/HCPCS: 72125; 74177 ==

== ENCOUNTER → 2024-03-16 15:32 | Outpatient (BNV) | payer BC, SELFPAY | PROVIDERS: Admitting Provider Surgery; Emergency Provider Student in an Organized Health Care Education/Training Program; PCP Pediatrics; Visit Provider Surgery | DX: Z90.49 Acquired absence of other specified parts of digestive tract (principal) | CPT/HCPCS: 44970; 99024; 99222; 99499 ==

== ENCOUNTER 2024-03-31 13:36 | Outpatient (AMB) | payer BC, SELFPAY ==
--- NOTE | 2024-03-31 13:39 | MHC.OFFVIS ---
Vital Signs 03/31/24 13:43 Height 5 ft 10 in Weight 146 lb 8 oz BMI 21.0 Intake Visit Reasons: stitches in head and appendectomy Intake Note: This patient presents for [facility] [place] hospital follow-up for suture removal for eyebrow laceration and follow-up status post laparoscopic appendectomy (03/16/2024). Pt c/o: reports no complaints at this time. Senior Mobile Web Developer Required: No Accompanied by: Self / Same As Patient Allergies No Known Allergies Allergy (Verified 03/31/24 13:44) HPI HPI stitches in head and appendectomy: Details: 18-year-old male here for a postop check. He underwent laparoscopic appendectomy for acute appendicitis last 03/16/2024. He tolerated procedure well and was discharged on postop day 1. He also had a left eyebrow laceration at that time which was sutured in the ER. This happened when he had a syncopal episode which he thought was because of his abdominal pain. He says he is doing well. He has good GI functions. He has good oral intake. [facility] Medical History Acute appendicitis Surgical History (Updated 03/31/24 @ 13:45 by Sherie Groves Ricardo) History of laparoscopic appendectomy (~03/16/24) Social History Household Members: Family Housing: House Do you presently have visiting nurse or other home services: No Patient Tobacco Use Status: Never used Tobacco service: No Review of Systems Const Denies chills and Denies fever(s) Card Denies dyspnea on exertion Resp Denies dyspnea on exertion GI Denies abdominal pain and Denies vomiting Physical Exam Vital Signs: BMI result Body Mass Index 21.0 Const General: comfortable and no acute distress HEENT Other: Eyebrow laceration well healed, sutures intact GI Other: All incisions are well healed and noninfected Palpation (GI): Soft to palpation, not firm, nontender and no guarding Assessment & Plan Assessment & Plan (1) Status post laparoscopic appendectomy: Code(s): Z90.49 - Acquired absence of other specified parts of digestive tract Category: Surgical Plan: He is doing very well postoperatively. His incisions are well healed. He has sutures in the eyebrow laceration that I removed His path report shows acute appendicitis. He was advised to avoid lifting anything more than 20 lb for about 2 more weeks. He can follow up on a p.r.n. basis. Coding Level of Care Code Global (26591) Diagnoses Status post laparoscopic appendectomy Z90.49
[2024-03-31 13:43] VITALS: BMI 21.0
== END 2024-03-31 14:08 | disposition home or self-care (01) ==
LOC: HO.HGS 13:36
PROVIDERS: PCP Pediatrics; Visit Provider Surgery
DX: Z90.49 Acquired absence of other specified parts of digestive tract (principal)
CPT/HCPCS: 99024

== ENCOUNTER → 2024-03-31 13:36 | Outpatient (BNVA) | payer BC, SELFPAY | PROVIDERS: PCP Pediatrics; Visit Provider Surgery ==